=== PATIENT | female | born 1970 | race Caucasian/White ===

== ENCOUNTER 2020-01-22 12:18 | Emergency (ER) | payer OTHER ==
[2020-01-22 12:28] VITALS: BP 179/107; PULSE 88
[2020-01-22] MEDS ORDERED: Sodium Chloride 0.9% 10 ML Syringe FLUSH PRN (13:10)
[2020-01-22] MEDS ORDERED: Ondansetron 4 MG/2 ML SDV IVPUSH ONE (13:10)
[2020-01-22] MEDS ORDERED: Sodium Chloride 0.9% 1,000 ML IV SCH (13:15)
--- NOTE | 2020-01-22 14:45 | EDM.PDOC ---
ED HPI GENERAL MEDICAL PROBLEM - General Chief Complaint: General Stated Complaint: OVERDOSED ON ZINC Time Seen by Provider: 01/22/20 12:36 Source of Information: Reports: Patient, RN Notes Reviewed - History of Present Illness INITIAL COMMENTS - FREE TEXT/NARRATIVE: 49 year old female bought some zinc supplement, took 2 tabs or pills last night and than took 3 more this AM, above recomended dose of "1 or 2" a day. After taking the pills this AM she began to feel ill, vomited and also had diarrhea. No chest or abd pain on arrival to ED, still feels mildly dizzy and nauseated. - Related Data Allergies Allergy/AdvReac Type Severity Reaction Status Date / Time No Known Allergies Allergy Verified 01/22/20 12:28 Home Meds: Home Meds Ibuprofen [Advil] 800 mg PO DAILY 05/26/19 [History] Omeprazole 20 mg PO DAILY #14 tablet. 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: Musculoskeletal History: Reports: None Neurological History: Reports: Headaches, Chronic Psychiatric History: Reports: None Endocrine/Metabolic History: Reports: None Hematologic History: Reports: None Immunologic History: Reports: None Oncologic (Cancer) History: Reports: None Dermatologic History: Reports: None - Infectious Disease History Infectious Disease History: Reports: Chicken Pox, Measles, Mumps Social & Family History - Family History Family Medical History: Noncontributory - Tobacco Use Smoking Status *Q: Never Smoker - Caffeine Use Caffeine Use: Reports: None - Recreational Drug Use Recreational Drug Use: No - Living Situation & Occupation Living situation: Reports: with Family, Occupation: Employed ED ROS GENERAL - Review of Systems Review Of Systems: See Below Constitutional: Denies: Fever, Chills, Diaphoresis HEENT: Reports: No Symptoms Respiratory: Denies: Shortness of Breath, Cough Cardiovascular: Denies: Chest Pain GI/Abdominal: Reports: Diarrhea, Nausea, Vomiting. Denies: Abdominal Pain Musculoskeletal: Reports: No Symptoms Skin: Reports: No Symptoms Neurological: Reports: Dizziness ED EXAM, GENERAL - Physical Exam Exam: See Below General Appearance: Alert, No Apparent Distress Eye Exam: Bilateral Eye: PERRL Head: Atraumatic. No: Facial Swelling Neck: Supple Respiratory/Chest: No Respiratory Distress, Lungs Clear, Normal Breath Sounds. No: Rhonchi, Wheezing Cardiovascular: Regular Rate, Rhythm GI/Abdominal: Soft, Non-Tender Extremities: Normal Inspection, Normal Range of Motion Neurological: Alert, Oriented, No Motor/Sensory Deficits Skin Exam: Warm, Dry, Normal Color Course - Vital Signs Last Recorded V/S: Last Vital Signs Temp 97.2 F 01/22/20 12:24 Pulse 88 01/22/20 12:24 Resp 16 01/22/20 12:24 BP 179/107 H 01/22/20 12:24 Pulse Ox 100 01/22/20 12:24 - Orders/Labs/Meds Orders: Active Orders 24 hr Category Date Time Status Peripheral IV Care [RC] . DIRECTED Care 01/22/20 13:11 Active Peripheral IV Insertion Adult [OM.PC] Stat Oth 01/22/20 13:10 Ordered Labs: Laboratory Tests 01/22/20 01/22/20 Range/Units 13:50 13:50 WBC 8.17 (3.98-10.04) K/mm3 RBC 4.07 (3.98-5.22) M/mm3 Hgb 12.4 (11.2-15.7) gm/dl Hct 37.1 (34.1-44.9) % MCV 91.2 (79.4-94.8) fl MCH 30.5 (25.6-32.2) pg MCHC 33.4 (32.2-35.5) g/dl RDW Std Deviation 44.7 (36.4-46.3) fL Plt Count 142 L (182-369) K/mm3 MPV 12.7 H (9.4-12.3) fl Neut % (Auto) 81.9 H (34.0-71.1) % Lymph % (Auto) 10.8 L (19.3-51.7) % [place] % (Auto) 6.1 (4.7-12.5) % Eos % (Auto) 1.0 (0.7-5.8) Baso % (Auto) 0.1 (0.1-1.2) % Neut # (Auto) 6.69 H (1.56-6.13) K/mm3 Lymph # (Auto) 0.88 L (1.18-3.74) K/mm3 [place] # (Auto) 0.50 H (0.24-0.36) K/mm3 Eos # (Auto) 0.08 (0.04-0.36) K/mm3 Baso # (Auto) 0.01 (0.01-0.08) K/mm3 Sodium 142 (136-145) mEq/L Potassium 4.4 (3.5-5.1) mEq/L Chloride 108 H (98-107) mEq/L Carbon Dioxide 25 (21-32) mEq/L Anion Gap 13.4 (5-15) BUN 11 (7-18) mg/dL Creatinine 0.7 (0.55-1.02) mg/dL Est Cr Clr Drug Dosing 81.30 mL/min Estimated GFR (MDRD) > 60 (>60) mL/min BUN/Creatinine Ratio 15.7 (14-18) Glucose 105 (74-106) mg/dL Calcium 8.5 (8.5-10.1) mg/dL Total Bilirubin 0.5 (0.2-1.0) mg/dL AST 21 (15-37) U/L ALT 24 (14-59) U/L Alkaline Phosphatase 115 (46-116) U/L Total Protein 7.0 (6.4-8.2) g/dl Albumin 3.7 (3.4-5.0) g/dl Globulin 3.3 gm/dL Albumin/Globulin Ratio 1.1 (1-2) Meds: Medications Discontinued Medications Generic Name Dose Route Start Last Admin Trade Name Freq PRN Reason Stop Dose Admin Sodium Chloride 1,000 mls @ 999 mls/hr 01/22/20 13:15 01/22/20 13:26 Normal Saline IV 999 mls/hr ONETIME KEE Administration Ondansetron HCl 4 mg 01/22/20 13:10 01/22/20 13:26 Zofran IVPUSH 01/22/20 13:11 4 mg ONETIME ONE Administration Sodium Chloride 10 ml 01/22/20 13:10 01/22/20 13:26 Saline Flush FLUSH 10 ml ASDIRECTED PRN Administration Keep Vein Open - Re-Assessments/Exams Free Text/Narrative Re-Assessment/Exam: 01/22/20 16:05 We did check with poison control, they are not concerned for any potential toxicity, she was feeling much better at time of discharge, labs nl. Departure - Departure Time of Disposition: 14:43 Disposition: Home, Self-Care 01 Condition: Fair Clinical Impression: Zinc poisoning - Discharge Information Referrals: Nida Baron MD [Primary Care Provider] - Forms: ED Department Discharge Additional Instructions: clear liquids, bland diet as tolerated. We did check with poison control and they state you will do well with current treatment. Avoid further zinc for at least the next week. Return to ED as needed. Sepsis Event Note - Evaluation Sepsis Screening Result: No Definite Risk - Focused Exam Vital Signs: Vital Signs Temp Pulse Resp BP Pulse Ox 01/22/20 12:24 97.2 F 88 16 179/107 H 100 Date Exam was Performed: 01/22/20 Time Exam was Performed: 16:02 - My Orders Last 24 Hours: My Active Orders 01/22/20 13:10 Peripheral IV Insertion Adult [OM.PC] Stat 01/22/20 13:11 Peripheral IV Care [RC] . DIRECTED - Assessment/Plan Last 24 Hours: My Active Orders 01/22/20 13:10 Peripheral IV Insertion Adult [OM.PC] Stat 01/22/20 13:11 Peripheral IV Care [RC] . DIRECTED
== END 2020-01-22 14:50 | disposition home or self-care (01) ==
LOC: JD.ED 12:18
DX: T56.5X1A Toxic effect of zinc and its compounds, accidental (unintentional), initial encounter (principal); K21.9 Gastro-esophageal reflux disease without esophagitis; Z79.899 Other long term (current) drug therapy
CPT/HCPCS: 36415; 80053; 85025; 96361; 96374; 99284; J2405; J7030; 99283

== ENCOUNTER 2020-04-22 16:30 | Emergency (ER) | payer OTHER ==
[2020-04-22 17:01] VITALS: BP 208/115; PULSE 87
[2020-04-22] MEDS ORDERED: Orphenadrine 100 MG Tab.ER PO ONE (18:04)
[2020-04-22] MEDS ORDERED: Ketorolac 60 MG/2 ML SDV IM ONE (18:04)
--- NOTE | 2020-04-22 18:17 | EDM.PDOC ---
ED HPI GENERAL MEDICAL PROBLEM - General Chief Complaint: Back Pain or Injury Stated Complaint: BACK/STOMACH PAIN Time Seen by Provider: 04/22/20 17:31 Source of Information: Reports: Patient, RN Notes Reviewed History Limitations: Reports: No Limitations - History of Present Illness INITIAL COMMENTS - FREE TEXT/NARRATIVE: Patient is a 50-year-old female who presents to the ED for evaluation of mid back pain. Patient states that her mid back/lower rib cage area seems to start hurting today, she would rate this at about a 10 out of 10. She states she has not tried any [id number] medications for pain relief. She is also complaining of some suprapubic pain, that started yesterday. She further notes that her urine had quite a foul smell a few days ago, and was wondering if she might not have an infection as well. She denies any fever/chills, nausea/vomiting, cough/shortness of breath. She did have a couple loose stools over the weekend, but states that she did indulge quite a bit over the April weekend. She further denies any dysuria, frequency or urgency. She denies any bowel or bladder incontinence, and also denies any saddle anesthesia. She does note that she has transient issues with her blood pressure is high at times, but she is not on any medications for this. She does state that the pain is sharp/shooting in nature, and does feel also kind of crampy and spasmy. Nothing seems to really make this worse, but she states that she took a warm bath this morning and it seemed to help. She states that the pain seemed to radiate around the front of her lower rib cage as well. She denies any trauma, or any weird moving/bending/stooping movements that she would have made. Back Pain Score (Numeric/FACES): 10 Abdomen Pain Score (Numeric/FACES): 6 - Related Data Allergies Allergy/AdvReac Type Severity Reaction Status Date / Time No Known Allergies Allergy Verified 01/22/20 12:28 Home Meds: Home Meds Ibuprofen [Advil] 800 mg PO DAILY 05/26/19 [History] Omeprazole 20 mg PO DAILY #14 tablet. 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 ED EXAM, UPPER BACK/NECK PAIN - Physical Exam Exam: See Below Exam Limited By: No Limitations General Appearance: Alert, WD/WN, No Apparent Distress Neck Exam: Non-Tender, Full Range of Motion, Normal Alignment, Normal Inspection Nexus Criteria: No: Posterior, Midline Cervical Tenderness, Evidence of Intoxication, Altered Level of Consciousness, Focal Neurological Deficit, Painful Distraction Injuries Cardiovascular/Respiratory: Regular Rate, Rhythm, No M/R/G, Normal Peripheral Pulses, No JVD, Normal Breath Sounds, No Respiratory Distress GI/Abdominal: Normal Bowel Sounds, Soft, Non-Tender, No Distention, No Mass Back Exam: Normal Inspection, Muscle Spasm (On the patient's right lower rib cage margin, this does seem to be a tender spot for her with palpation.). No: CVA Tenderness (L), CVA Tenderness (R) Extremities: Normal Inspection, Normal Capillary Refill Neurologic: squilgeer II-XII nml As Tested, No Motor/Sensory Deficits, Alert, Normal Mood/Affect, Oriented x 3 Psychiatric: Normal Affect, Normal Mood Skin Exam: Normal Color, Warm/Dry Course - Vital Signs Last Recorded V/S: Last Vital Signs Temp 98.3 F 04/22/20 16:56 Pulse 87 04/22/20 16:56 Resp BP 208/115 H 04/22/20 16:56 Pulse Ox 100 04/22/20 16:56 - Orders/Labs/Meds Labs: Laboratory Tests 04/22/20 Range/Units 17:50 Urine Color Light yellow (Yellow) Urine Appearance Clear (Clear) Urine pH 6.0 (5.0-8.0) Ur Specific [place] > or = 1.030 (1.005-1.030) Urine Protein Negative (Negative) Urine Glucose (UA) Negative (Negative) Urine Ketones Negative (Negative) Urine Occult Blood Trace-intact H (Negative) Urine Nitrite Negative (Negative) Urine Bilirubin Negative (Negative) Urine Urobilinogen 0.2 (0.2-1.0) Ur Leukocyte Esterase Negative (Negative) Urine RBC 0-5 (0-5) /hpf Urine WBC Not seen (0-5) /hpf Ur Squamous Epith Cells 0-5 (0-5) /hpf Urine Bacteria Not seen (FEW) /hpf Urine Mucus Not seen (FEW) /hpf Meds: Medications Discontinued Medications Generic Name Dose Route Start Last Admin Trade Name Aditya PRN Reason Stop Dose Admin Ketorolac Tromethamine 60 mg 04/22/20 18:04 04/22/20 18:12 Toradol IM 04/22/20 18:05 60 mg ONETIME ONE Administration Orphenadrine Citrate 100 mg 04/22/20 18:04 04/22/20 18:12 Norflex PO 04/22/20 18:05 100 mg ONETIME ONE Administration - Re-Assessments/Exams Free Text/Narrative Re-Assessment/Exam: 04/22/20 18:17 Patient presents to the ED for the evaluation of her mid back/urinary symptoms. We will get urinalysis to evaluate for UTI, but I do feel that this is likely a muscle spasm in nature. She has also been given 60 mg Toradol and 100 mg Norflex for management. 04/22/20 18:50 Patient's UTI didn't demonstrate any sign of a UTI. Will treat for muscle spasms and send her home with norflex and naprosyn. 04/22/20 19:13 Patient reports she feels pretty good pain relief from the medications provided. Departure - Departure Time of Disposition: 18:54 Disposition: Home, Self-Care 01 Condition: Good Clinical Impression: Mid-back pain, acute - Discharge Information *PRESCRIPTION DRUG MONITORING PROGRAM REVIEWED*: No *COPY OF PRESCRIPTION DRUG MONITORING REPORT IN PATIENT LAZARO: No Prescriptions: Naproxen [Naprosyn] 500 mg PO Q12HR #14 tab Orphenadrine [Norflex] 100 mg PO BID PRN #20 tab PRN Reason: Spasms Instructions: Back Injury Prevention, [id number] Referrals: Nida Baron MD [Primary Care Provider] - Forms: ED Department Discharge Additional Instructions: You have been evaluated in the ER today for your back pain. Your urinalysis did not demonstrate any sign of a UTI. Your pain is most likely musculoskeletal in nature. You have been provided with a prescription for Napr osyn and Norflex, please take as directed. You may want to try to use heat packs to the area, or try to utilize area chiropractors or massage to try to get some more relief from the pain. Please return to the ER at any time if your symptoms change or worsen. Sepsis Event Note (ED) - Evaluation Sepsis Screening Result: No Definite Risk - Focused Exam Vital Signs: Vital Signs Temp Pulse BP Pulse Ox 04/22/20 16:56 98.3 F 87 208/115 H 100
== END 2020-04-22 19:25 | disposition home or self-care (01) ==
LOC: JD.ED 16:30
DX: M54.6 Pain in thoracic spine (principal); K21.9 Gastro-esophageal reflux disease without esophagitis; Z79.899 Other long term (current) drug therapy
CPT/HCPCS: 81001; 96372; 99283; A9270; J1885

== ENCOUNTER 2020-07-30 17:47 | Emergency (ER) | payer OTHER ==
[2020-07-30 18:15] VITALS: BP 162/86; PULSE 75
[2020-07-30] MEDS ORDERED: Ondansetron 4 MG/2 ML SDV IVPUSH ONE (18:27)
[2020-07-30] MEDS ORDERED: Sodium Chloride 0.9% 1,000 ML IV SCH (18:30)
[2020-07-30] MEDS ORDERED: Sodium Chloride 0.9% 10 ML Syringe FLUSH PRN (18:31)
[2020-07-30] MEDS ORDERED: HYDROmorphone 1 MG/ML Syringe IVPUSH ONE (18:32)
--- NOTE | 2020-07-30 18:44 | EDM.PDOC ---
ED HPI GENERAL MEDICAL PROBLEM - General Chief Complaint: Abdominal Pain Stated Complaint: ABDOMINAL PAIN AND BLOOD IN URINE Time Seen by Provider: 07/30/20 18:06 Source of Information: Reports: Patient, RN Notes Reviewed History Limitations: Reports: No Limitations - History of Present Illness INITIAL COMMENTS - FREE TEXT/NARRATIVE: Patient is a 50-year-old female who presents to the ED for her lower abdomen pain and vaginal bleeding. Patient notes for the last 3 days, she has noticed some vaginal bleeding. She states she is going through menopause, and had her last menstrual period 1 year ago. She has not had any vaginal bleeding since these last 3 days. She states this is fairly light, she is using 1 or 2 liners daily. She does also note a remote history of being COVID positive, and states that she is not contagious at this time. She is having some lingering dizziness and lightheadedness from this along with a dry hacking cough. Her primary care provider is Nida Baron, does seem an PACKING ATTENDANT in [place]. States that she does have an appointment to see them sometime in August. She has had uterine polyps removed in the past. She states that her abdomen pain is kind of a generalized cramping but it is there all the time nothing really seems to make it better or worse. She has not had any other abdominal surgeries. She is not having any fevers or chills, nausea or vomiting, but did have some diarrhea or loose stools, and states that she is not really regular in the bowel department as she states she is frequently constipated and does not have BMs. She also relates a history of a prolapsed bladder. 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 05/26/19 [Rx] Cholecalciferol (Vitamin D3) [Vitamin D] 5,000 unit PO DAILY 01/22/20 [History] Ondansetron [Zofran ODT] 4 mg PO ASDIRECTED 04/22/20 [History] Past Medical History HEENT History: Reports: None Cardiovascular History: Reports: Other (See Below) Other Cardiovascular History: LBBB Respiratory History: Reports: None Gastrointestinal History: Reports: GERD, Hiatal Hernia Genitourinary History: Reports: None PACKING ATTENDANT History: Reports: Musculoskeletal History: Reports: None Neurological History: Reports: Headaches, Chronic Psychiatric History: Reports: None Endocrine/Metabolic History: Reports: None Hematologic History: Reports: None Immunologic History: Reports: None Oncologic (Cancer) History: Reports: None Dermatologic History: Reports: None - Infectious Disease History Infectious Disease History: Reports: Other (See Below) Other Infectious Disease History: covid + Social & Family History - Family History Family Medical History: Noncontributory - Tobacco Use Tobacco Use Status *Q: Never Tobacco User - Caffeine Use Caffeine Use: Reports: Soda - Recreational Drug Use Recreational Drug Use: No - Living Situation & Occupation Living situation: Reports: with Family, Occupation: Employed ED ROS GENERAL - Review of Systems Review Of Systems: Comprehensive ROS is negative, except as noted in HPI. ED EXAM, GI/ABD - Physical Exam Exam: See Below Exam Limited By: No Limitations General Appearance: Alert, WD/WN, No Apparent Distress Respiratory/Chest: No Respiratory Distress, Lungs Clear, Normal Breath Sounds, No Accessory Muscle Use, Chest Non-Tender Cardiovascular: Normal Peripheral Pulses, Regular Rate, Rhythm, No Murmur GI/Abdominal Exam: Normal Bowel Sounds, Soft, No Distention, No Mass, Tender (generalized) (Female) Exam: Normal External Exam, Normal Bimanual Exam, Other (pt does have prolapsed bladder, there was 1-2 flecks of bright read blood on glove after bimanual exam. She did have some midline uterine tenderness) Extremities: Normal Inspection, Normal Capillary Refill Neurological: Alert, Oriented, Normal Cognition, No Motor/Sensory Deficits Psychiatric: Normal Affect, Normal Mood Skin Exam: Warm, Dry, Intact, Normal Color, No Rash Course - Vital Signs Last Recorded V/S: Last Vital Signs Temp 97.9 F 07/30/20 18:13 Pulse 75 07/30/20 18:13 Resp 20 07/30/20 18:13 BP 162/86 H 07/30/20 18:13 Pulse Ox 99 07/30/20 18:13 - Orders/Labs/Meds Orders: Active Orders 24 hr Category Date Time Status Peripheral IV Care [RC] . DIRECTED Care 07/30/20 18:31 Ordered Abdomen Pelvis w Cont [CT] Stat Exams 07/30/20 18:27 Ordered Sodium Chloride 0.9% [Normal Saline] 1,000 ml Med 07/30/20 18:30 Ordered IV ASDIRECTED Sodium Chloride 0.9% [Saline Flush] Med 07/30/20 18:31 Ordered 10 ml FLUSH ASDIRECTED PRN Peripheral IV Insertion Adult [OM.PC] Routine Oth 07/30/20 18:31 Ordered Medication Orders Sodium Chloride (Normal Saline) 1,000 mls @ 999 mls/hr IV ASDIRECTED KEE Last Admin: 07/30/20 18:49 Dose: 999 mls/hr Documented by: ELIE Sodium Chloride (Saline Flush) 10 ml FLUSH ASDIRECTED PRN PRN Reason: Keep Vein Open Last Admin: 07/30/20 18:49 Dose: 10 ml Documented by: ELIE Labs: Laboratory Tests 07/30/20 07/30/20 07/30/20 Range/Units 18:33 18:40 18:40 WBC 4.76 (3.98-10.04) K/mm3 RBC 4.00 (3.98-5.22) M/mm3 Hgb 12.4 (11.2-15.7) gm/dl Hct 36.2 (34.1-44.9) % MCV 90.5 (79.4-94.8) fl MCH 31.0 (25.6-32.2) pg MCHC 34.3 (32.2-35.5) g/dl RDW Std Deviation 41.7 (36.4-46.3) fL Plt Count 174 L (182-369) K/mm3 MPV 12.0 (9.4-12.3) fl Neutrophils % (Manual) 43 (40-60) % Band Neutrophils % 2 (0-10) % Lymphocytes % (Manual) 47 H (20-40) % Atypical Lymphs % 0 % Monocytes % (Manual) 3 (2-10) % Eosinophils % (Manual) 5 (0.7-5.8) % Basophils % (Manual) 0 L (0.1-1.2) Platelet Estimate Adequate RBC Morph Comment Normal Sodium 141 (136-145) mEq/L Potassium 3.8 (3.5-5.1) mEq/L Chloride 103 (98-107) mEq/L Carbon Dioxide 28 (21-32) mEq/L Anion Gap 13.8 (5-15) BUN 13 (7-18) mg/dL Creatinine 1.0 (0.55-1.02) mg/dL Est Cr Clr Drug Dosing 56.29 mL/min Estimated GFR (MDRD) 59 (>60) mL/min BUN/Creatinine Ratio 13.0 L (14-18) Glucose 91 (74-106) mg/dL Calcium 9.1 (8.5-10.1) mg/dL Total Bilirubin 0.5 (0.2-1.0) mg/dL AST 14 L (15-37) U/L ALT 14 (14-59) U/L Alkaline Phosphatase 115 (46-116) U/L Total Protein 7.3 (6.4-8.2) g/dl Albumin 3.6 (3.4-5.0) g/dl Globulin 3.7 gm/dL Albumin/Globulin Ratio 1.0 (1-2) Urine Color Yellow (Yellow) Urine Appearance Clear (Clear) Urine pH 6.5 (5.0-8.0) Ur Specific [place] 1.015 (1.005-1.030) Urine Protein Negative (Negative) Urine Glucose (UA) Negative (Negative) Urine Ketones Negative (Negative) Urine Occult Blood Negative (Negative) Urine Nitrite Negative (Negative) Urine Bilirubin Negative (Negative) Urine Urobilinogen 0.2 (0.2-1.0) Ur Leukocyte Esterase Negative (Negative) Urine RBC Not seen (0-5) /hpf Urine WBC Not seen (0-5) /hpf Ur Squamous Epith Cells Not seen (0-5) /hpf Urine Bacteria Occasional (FEW) /hpf Urine Mucus Not seen (FEW) /hpf Meds: Medications Generic Name Dose Route Start Last Admin Trade Name Freq PRN Reason Stop Dose Admin Sodium Chloride 1,000 mls @ 999 mls/hr 07/30/20 18:30 07/30/20 18:49 Normal Saline IV 999 mls/hr ASDIRECTED KEE Administration Sodium Chloride 10 ml 07/30/20 18:31 07/30/20 18:49 Saline Flush FLUSH 10 ml ASDIRECTED PRN Administration Keep Vein Open Discontinued Medications Generic Name Dose Route Start Last Admin Trade Name Freq PRN Reason Stop Dose Admin Diatrizoate Meglum/Diatrizoate Sod 120 ml 07/30/20 20:28 07/30/20 20:29 Gastrografin 37% PO 07/30/20 20:29 120 ml ONETIME ONE Administration Hydromorphone HCl 1 mg 07/30/20 18:32 Dilaudid IVPUSH 07/30/20 18:33 ONETIME ONE Iopamidol 100 ml 07/30/20 20:28 07/30/20 20:29 Isovue-300 (61%) IVPUSH 07/30/20 20:29 100 ml ONETIME ONE Administration Ondansetron HCl 4 mg 07/30/20 18:27 07/30/20 18:49 Zofran IVPUSH 07/30/20 18:28 4 mg ONETIME ONE Administration Sodium Chloride 10 ml 07/30/20 20:28 07/30/20 20:29 Saline Flush FLUSH 07/30/20 20:29 10 ml ONETIME ONE Administration - Re-Assessments/Exams Free Text/Narrative Re-Assessment/Exam: 07/30/20 18:44 Patient presents to the ED for evaluation of her abdominal discomfort and a suspected vaginal bleeding. Unsure as to where the vaginal bleeding is coming from. Will get basic labs, abdomen CT and a UA for evaluation. 07/30/20 19:21 Urinalysis is unremarkable, other labs are unremarkable, white blood cell count is within normal limits, metabolic panel shows no focal abnormalities. CT is still pending at this time. 07/30/20 21:[address] is done, and demonstrates no acute abnormalities, does show the remnant of COVID pneumonia. She does have cholelithiasis, and was found to have 2 stones in her gallbladder with no gallbladder wall thickening. There is no pericholecystic fluid, no biliary ductal dilatation. All other structures were unremarkable. I did go over this case with our PACKING ATTENDANT on-call, Dr. Parker and she does recommend that the patient follow-up with her PACKING ATTENDANT on Sunday, and , and she believes that this could be irritation due to the prolapsed bladder urged them to move her appointment to a sooner date for ER follow-up for possible ultrasound and or biopsies. Patient verbalized understanding at this time, I did give her return precautions and she verbalized understanding again. Departure - Departure Time of Disposition: 21:03 Disposition: Home, Self-Care 01 Condition: Good Clinical Impression: Vaginal bleeding, Perimenopausal, Prolapsed bladder Abdominal pain Qualifiers: Abdominal location: lower abdomen, unspecified Qualified Code(s): R10.30 - Lower abdominal pain, unspecified - Discharge Information *PRESCRIPTION DRUG MONITORING PROGRAM REVIEWED*: No *COPY OF PRESCRIPTION DRUG MONITORING REPORT IN PATIENT LAZARO: No Referrals: Nida Baron, LINK TRAINER MAINTENANCE MAN [Primary Care Provider] - Forms: ED Department Discharge Additional Instructions: You were evaluated in the ER today for your lower abdomen pain, and vaginal bleeding. Labs, and CT were all fairly unremarkable. You do not have any sort of infection causing this issue. Your CT did demonstrate 2 stones within your gallbladder, but no major defects otherwise within any other structure in your abdomen. You do have lingering changes in your lungs, due to your semi-recent COVID infection. I did consult with our OB/GYNon call, Dr. Faria regarding your vaginal bleeding, and we do believe that this could be from irritation due to the prolapsed bladder. A little bit of bleeding is okay, if you are only soaking through a liner. Cause for concern to return to the ER would be if you were to be soaking through a maxi pad every 2 hours or so. As this would be too much blood loss. Please get a hold of your PACKING ATTENDANT on Sunday, and see if you can get your appointment moved to a sooner date for ER follow-up for possible ultrasound and or biopsies if this is deemed warranted. Please return to the ER at any time if your symptoms change or worsen. Sepsis Event Note (ED) - Evaluation Sepsis Screening Result: No Definite Risk - Focused Exam Vital Signs: Vital Signs Temp Pulse Resp BP Pulse Ox 07/30/20 18:13 97.9 F 75 20 162/86 H 99 - My Orders Last 24 Hours: My Active Orders 07/30/20 18:27 Abdomen Pelvis w Cont [CT] Stat 07/30/20 18:30 Sodium Chloride 0.9% [Normal Saline] 1,000 ml IV ASDIRECTED 07/30/20 18:31 Peripheral IV Care [RC] . DIRECTED Sodium Chloride 0.9% [Saline Flush] 10 ml FLUSH ASDIRECTED PRN Peripheral IV Insertion Adult [OM.PC] Routine - Assessment/Plan Last 24 Hours: My Active Orders 07/30/20 18:27 Abdomen Pelvis w Cont [CT] Stat 07/30/20 18:30 Sodium Chloride 0.9% [Normal Saline] 1,000 ml IV ASDIRECTED 07/30/20 18:31 Peripheral IV Care [RC] . DIRECTED Sodium Chloride 0.9% [Saline Flush] 10 ml FLUSH ASDIRECTED PRN Peripheral IV Insertion Adult [OM.PC] Routine
[2020-07-30] MEDS ORDERED: Sodium Chloride 0.9% 10 ML Syringe FLUSH ONE (20:28)
[2020-07-30] MEDS ORDERED: Iopamidol 612 MG/ML 100 ML Bottle IVPUSH ONE (20:28)
[2020-07-30] MEDS ORDERED: Diatrizoate Meglumine/Diatrizoate Sodium 37% 120 ML Bottle PO ONE (20:28)
== END 2020-07-30 21:25 | disposition home or self-care (01) ==
LOC: JD.ED 17:47
DX: N93.9 Abnormal uterine and vaginal bleeding, unspecified (principal); N81.10 Cystocele, unspecified; Z78.0 Asymptomatic menopausal state; Z86.19 Personal history of other infectious and parasitic diseases
CPT/HCPCS: 36415; 74177; 80053; 81001; 85007; 85027; 96374; 99284; J2405; J7030; Q9963; Q9967

== ENCOUNTER 2020-09-27 17:31 | Emergency (ER) | payer SELFPAY ==
[2020-09-27] MEDS ORDERED: Alum Hydrox/Mag Hydrox/Simeth 30 ML, Lidocaine 2% 15 ML PO ONE ×2 (18:07)
--- NOTE | 2020-09-27 18:12 | EDM.PDOC ---
ED HPI GENERAL MEDICAL PROBLEM - General Chief Complaint: Chest Pain Stated Complaint: SOB AND CHEST PRESSURE WITH NEW MEDS Time Seen by Provider: 09/27/20 17:41 Source of Information: Reports: Patient, RN Notes Reviewed - History of Present Illness INITIAL COMMENTS - FREE TEXT/NARRATIVE: 50 yr old female has has mild ant. chest pressure today. It does not radiate to her neck, shoulder or arm. Hx of GERD but "this feels different". No recent cough or difficulty breathing. Hx of covid about 2 months ago. She still feels fatigue from that but otherwise believes she is fully recovered. Started on propanalol 80 mg LA once daily about 5 days ago for Htn. No abd pain, nausea or vomiting. Chest Pain Score (Numeric/FACES): 5 - Related Data Allergies Allergy/AdvReac Type Severity Reaction Status Date / Time No Known Allergies Allergy Verified 09/27/20 17:42 Home Meds: Home Meds Ibuprofen [Advil] 800 mg PO DAILY 05/26/19 [History] Omeprazole 20 mg PO DAILY #14 tablet. 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: Musculoskeletal History: Reports: None Neurological History: Reports: Headaches, Chronic Psychiatric History: Reports: None Endocrine/Metabolic History: Reports: None Hematologic History: Reports: None Immunologic History: Reports: None Oncologic (Cancer) History: Reports: None Dermatologic History: Reports: None - Infectious Disease History Infectious Disease History: Reports: Novel Coronavirus Other Infectious Disease History: covid + Social & Family History - Family History Family Medical History: No Pertinent Family History - Tobacco Use Tobacco Use Status *Q: Never Tobacco User - Caffeine Use Caffeine Use: Reports: Soda - Living Situation & Occupation Living situation: Reports: with Family, Occupation: Employed ED ROS GENERAL - Review of Systems Review Of Systems: See Below Constitutional: Denies: Fever, Chills, Diaphoresis HEENT: Reports: No Symptoms Respiratory: Denies: Shortness of Breath, Wheezing, Pleuritic Chest Pain, Cough Cardiovascular: Reports: Chest Pain Endocrine: Reports: Fatigue GI/Abdominal: Denies: Abdominal Pain, Nausea, Vomiting Musculoskeletal: Denies: Neck Pain, Shoulder Pain, Arm Pain Skin: Reports: No Symptoms Neurological: Reports: No Symptoms ED EXAM, GENERAL - Physical Exam Exam: See Below General Appearance: Alert, No Apparent Distress Eye Exam: Bilateral Eye: PERRL Head: Atraumatic Neck: Supple, Other (No JVD) Cardiovascular: Regular Rate, Rhythm GI/Abdominal: Soft, Non-Tender. No: Guarding Back Exam: No: CVA Tenderness (L), CVA Tenderness (R) Extremities: Normal Inspection. No: Pedal Edema, Leg Pain, Increased Warmth Neurological: Alert, Oriented, No Motor/Sensory Deficits Skin Exam: Warm, Normal Color #1 Interpretation EKG Date: 09/27/20 Rhythm: NSR [place]: Normal P-Wave: Present QRS: LBBB Course - Vital Signs Last Recorded V/S: Last Vital Signs Temp 97.2 F 09/27/20 17:38 Pulse 59 L 09/27/20 18:30 Resp 16 09/27/20 18:30 BP 166/98 H 09/27/20 18:30 Pulse Ox 98 09/27/20 18:30 - Orders/Labs/Meds Orders: Active Orders 24 hr Category Date Time Status EKG 12 Lead [EKG Documentation Completion] [RC] ONETIME Care 09/27/20 17:38 Active Chest 1V Frontal [CR] Stat Exams 09/27/20 17:47 Taken Sodium Chloride 0.9% [Normal Saline] 1,000 ml Med 09/27/20 18:15 Active IV ONETIME Medication Orders Sodium Chloride (Normal Saline) 1,000 mls @ 999 mls/hr IV ONETIME KEE Last Admin: 09/27/20 18:10 Dose: 999 mls/hr Documented by: REGULO Labs: Laboratory Tests 09/27/20 09/27/20 Range/Units 17:43 17:43 WBC 7.07 (3.98-10.04) K/mm3 RBC 4.13 (3.98-5.22) M/mm3 Hgb 12.9 (11.2-15.7) gm/dl Hct 37.5 (34.1-44.9) % MCV 90.8 (79.4-94.8) fl MCH 31.2 (25.6-32.2) pg MCHC 34.4 (32.2-35.5) g/dl RDW Std Deviation 41.8 (36.4-46.3) fL Plt Count 190 (182-369) K/mm3 MPV 12.5 H (9.4-12.3) fl Neut % (Auto) 52.5 (34.0-71.1) % Lymph % (Auto) 37.5 (19.3-51.7) % [place] % (Auto) 7.1 (4.7-12.5) % Eos % (Auto) 2.5 (0.7-5.8) Baso % (Auto) 0.3 (0.1-1.2) % Neut # (Auto) 3.71 (1.56-6.13) K/mm3 Lymph # (Auto) 2.65 (1.18-3.74) K/mm3 [place] # (Auto) 0.50 H (0.24-0.36) K/mm3 Eos # (Auto) 0.18 (0.04-0.36) K/mm3 Baso # (Auto) 0.02 (0.01-0.08) K/mm3 Sodium 138 (136-145) mEq/L Potassium 3.4 L (3.5-5.1) mEq/L Chloride 104 (98-107) mEq/L Carbon Dioxide 27 (21-32) mEq/L Anion Gap 10.4 (5-15) BUN 15 (7-18) mg/dL Creatinine 0.9 (0.55-1.02) mg/dL Est Cr Clr Drug Dosing TNP Estimated GFR (MDRD) > 60 (>60) mL/min BUN/Creatinine Ratio 16.7 (14-18) Glucose 101 (74-106) mg/dL Calcium 9.4 (8.5-10.1) mg/dL Total Bilirubin 0.4 (0.2-1.0) mg/dL AST 15 (15-37) U/L ALT 18 (14-59) U/L Alkaline Phosphatase 90 (46-116) U/L Troponin I < 0.017 (0.00-0.056) ng/mL Total Protein 7.7 (6.4-8.2) g/dl Albumin 4.0 (3.4-5.0) g/dl Globulin 3.7 gm/dL Albumin/Globulin Ratio 1.1 (1-2) Meds: Medications Generic Name Dose Route Start Last Admin Trade Name Freq PRN Reason Stop Dose Admin Sodium Chloride 1,000 mls @ 999 mls/hr 09/27/20 18:15 09/27/20 18:10 Normal Saline IV 999 mls/hr ONETIME KEE Administration Discontinued Medications Generic Name Dose Route Start Last Admin Trade Name Freq PRN Reason Stop Dose Admin Al Hydroxide/Mg Hydroxide 30 0 ml 09/27/20 18:07 09/27/20 18:12 ml/ Lidocaine HCl 15 ml PO 09/27/20 18:08 45 ml ONETIME ONE Administration - Re-Assessments/Exams Free Text/Narrative Re-Assessment/Exam: 09/27/20 18:36 EKG shows a LBB, old. Trop nl, labs otherwise nl, CXR nl. 09/27/20 18:37> Pt resting comfortably at time of discharge, sinus rythm, no ectopy. Sats 98 %. BP's have been mildly high but trending down. Discharge instr. as documented. Departure - Departure Time of Disposition: 18:34 Disposition: Home, Self-Care 01 Condition: Fair Clinical Impression: Atypical chest pain Hypertension Qualifiers: Hypertension type: essential hypertension Qualified Code(s): I10 - Essential (primary) hypertension Referrals: Raine Beyer MD [Primary Care Provider] - Forms: ED Department Discharge Additional Instructions: Continue current medications. Continue to check your BP once or twice daily and keep a record for Dr Beyer. Plan to see Dr Beyer in follow up in about 5 to 10 days or otherwise as directed. Return to ED as needed if symptoms worsening in any way. Sepsis Event Note (ED) - Evaluation Sepsis Screening Result: No Definite Risk - Focused Exam Vital Signs: Vital Signs Temp Pulse Resp BP Pulse Ox 09/27/20 18:30 59 L 16 166/98 H 98 09/27/20 18:00 58 L 16 165/92 H 98 09/27/20 17:38 97.2 F 59 L 16 177/94 H 99 - My Orders Last 24 Hours: My Active Orders 09/27/20 17:38 EKG 12 Lead [EKG Documentation Completion] [RC] ONETIME 09/27/20 17:47 Chest 1V Frontal [CR] Stat 09/27/20 18:15 Sodium Chloride 0.9% [Normal Saline] 1,000 ml IV ONETIME - Assessment/Plan Last 24 Hours: My Active Orders 09/27/20 17:38 EKG 12 Lead [EKG Documentation Completion] [RC] ONETIME 09/27/20 17:47 Chest 1V Frontal [CR] Stat 09/27/20 18:15 Sodium Chloride 0.9% [Normal Saline] 1,000 ml IV ONETIME
[2020-09-27] MEDS ORDERED: Sodium Chloride 0.9% 1,000 ML IV SCH (18:15)
[2020-09-27 18:32] VITALS: BP 166/98; PULSE 59
--- NOTE | 2020-09-28 09:17 | CR ---
Chest: Frontal view of the chest was obtained. Comparison: Prior chest x-ray of 05/26/19. Findings: Heart size and mediastinum are normal. Lungs are clear with no acute parenchymal change. Bony structures are grossly intact. Impression: 1. Nothing acute is appreciated on portable chest x-ray. Diagnostic code #1
== END 2020-09-27 18:44 | disposition home or self-care (01) ==
LOC: JD.ED 17:31
DX: R07.89 Other chest pain (principal); I10 Essential (primary) hypertension; K21.9 Gastro-esophageal reflux disease without esophagitis; Z86.19 Personal history of other infectious and parasitic diseases; Z79.899 Other long term (current) drug therapy
CPT/HCPCS: 36415; 71045; 80053; 84484; 85025; 93005; 99285; A9270; J7030

== ENCOUNTER 2020-12-13 00:36 | Emergency (ER) | payer OTHER ==
[2020-12-13 00:47] VITALS: BP 187/105; PULSE 72
[2020-12-13] MEDS ORDERED: Sodium Chloride 0.9% 10 ML Syringe FLUSH PRN (00:51)
[2020-12-13] MEDS ORDERED: Ondansetron 4 MG/2 ML SDV IVPUSH ONE (00:51)
[2020-12-13] MEDS ORDERED: Ketorolac 30 MG/ML SDV IVPUSH ONE (00:52)
--- NOTE | 2020-12-13 00:56 | EDM.PDOC ---
ED HPI GENERAL MEDICAL PROBLEM - General Chief Complaint: Flank Pain Stated Complaint: RT SIDE FLANK PAIN Time Seen by Provider: 12/13/20 00:47 Source of Information: Reports: Patient History Limitations: Reports: No Limitations - History of Present Illness INITIAL COMMENTS - FREE TEXT/NARRATIVE: The patient presents with right flank pain. This started about an hour ago. The pin radiates into her abdomen. She has nausea but no vomiting. She does have a history of gallstones but the pain is a little different. She does not think she has any history of kidney stones. She has no fever, chills, cough, chest pain, or shortness of breath. She has no dysuria or hematuria. Onset: Sudden Duration: Hour(s): Location: Reports: Abdomen, Back Quality: Reports: Sharp Severity: Moderate Improves with: Reports: None Worsens with: Reports: None Associated Symptoms: Reports: Nausea/Vomiting. Denies: Chest Pain, Cough, Fever/Chills, Headaches, Shortness of Breath Right Flank Pain Score (Numeric/FACES): 9 - Related Data Allergies Allergy/AdvReac Type Severity Reaction Status Date / Time No Known Allergies Allergy Verified 09/27/20 17:42 Home Meds: Home Meds Esomeprazole Magnesium [Nexium] 40 mg PO DAILY 12/13/20 [History] Losartan/Hydrochlorothiazide [Losartan-HCTZ 50-12.5 MG] 1 tab PO DAILY 12/13/20 [History] Past Medical History HEENT History: Reports: None Cardiovascular History: Reports: Hypertension, Other (See Below) Other Cardiovascular History: LBBB Respiratory History: Reports: None Gastrointestinal History: Reports: Cholelithiasis, GERD, Hiatal Hernia Genitourinary History: Reports: None 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: Musculoskeletal History: Reports: None Neurological History: Reports: Headaches, Chronic, Migraines Psychiatric History: Reports: None Endocrine/Metabolic History: Reports: None Hematologic History: Reports: None Immunologic History: Reports: None Oncologic (Cancer) History: Reports: None Dermatologic History: Reports: None - Infectious Disease History Infectious Disease History: Reports: Novel Coronavirus Other Infectious Disease History: covid + 07/2020 Social & Family History - Family History Family Medical History: No Pertinent Family History - Tobacco Use Tobacco Use Status *Q: Never Tobacco User - Caffeine Use Caffeine Use: Reports: Soda - Recreational Drug Use Recreational Drug Use: No - Living Situation & Occupation Living situation: Reports: with Family, Occupation: Employed ED ROS GENERAL - Review of Systems Review Of Systems: See Below Constitutional: Reports: No Symptoms HEENT: Reports: No Symptoms Respiratory: Reports: No Symptoms Cardiovascular: Reports: No Symptoms Endocrine: Reports: No Symptoms GI/Abdominal: Reports: Abdominal Pain, Nausea. Denies: Diarrhea, Vomiting : Reports: Flank Pain (right) Musculoskeletal: Reports: No Symptoms Skin: Reports: No Symptoms ED EXAM, RENAL/ - Physical Exam Exam: See Below Exam Limited By: No Limitations General Appearance: Alert, No Apparent Distress Ears: Normal External Exam Nose: Normal Inspection Head: Atraumatic, Normocephalic Neck: Normal Inspection Respiratory/Chest: No Respiratory Distress, Lungs Clear, Normal Breath Sounds Cardiovascular: Regular Rate, Rhythm, No Edema, No Murmur GI/Abdominal: Soft, No Organomegaly, No Mass, Tender (Mild tenderness to the right abdomen) Back Exam: CVA Tenderness (R) Extremities: Normal Inspection Course - Vital Signs Last Recorded V/S: Last Vital Signs Temp 97.0 F 12/13/20 00:45 Pulse 72 12/13/20 00:45 Resp 15 12/13/20 00:45 BP 187/105 H 12/13/20 00:45 Pulse Ox 100 12/13/20 00:45 - Orders/Labs/Meds Orders: Active Orders 24 hr Category Date Time Status Peripheral IV Care [RC] . DIRECTED Care 12/13/20 00:51 Active Abdomen Pelvis wo Cont [CT] Stat Exams 12/13/20 00:51 Ordered Sodium Chloride 0.9% [Normal Saline] 1,000 ml Med 12/13/20 01:00 Active IV ASDIRECTED Sodium Chloride 0.9% [Saline Flush] Med 12/13/20 00:51 Active 10 ml FLUSH ASDIRECTED PRN ED Antiemetic Medication Reflex [OM.PC] Stat Oth 12/13/20 00:51 Ordered Peripheral IV Insertion Adult [OM.PC] Stat Oth 12/13/20 00:51 Ordered Medication Orders Sodium Chloride (Normal Saline) 1,000 mls @ 125 mls/hr IV ASDIRECTED KEE Last Admin: 12/13/20 01:04 Dose: 125 mls/hr Documented by: VISHNU Sodium Chloride (Saline Flush) 10 ml FLUSH ASDIRECTED PRN PRN Reason: Keep Vein Open Last Admin: 12/13/20 01:08 Dose: 10 ml Documented by: VISHNU Labs: Laboratory Tests 12/13/20 12/13/20 12/13/20 Range/Units 01:01 01:01 01:28 WBC 8.90 (3.98-10.04) K/mm3 RBC 4.26 (3.98-5.22) M/mm3 Hgb 13.2 (11.2-15.7) gm/dl Hct 38.5 (34.1-44.9) % MCV 90.4 (79.4-94.8) fl MCH 31.0 (25.6-32.2) pg MCHC 34.3 (32.2-35.5) g/dl RDW Std Deviation 43.9 (36.4-46.3) fL Plt Count 177 L (182-369) K/mm3 MPV 11.8 (9.4-12.3) fl Neut % (Auto) 57.9 (34.0-71.1) % Lymph % (Auto) 31.7 (19.3-51.7) % Jack % (Auto) 7.8 (4.7-12.5) % Eos % (Auto) 2.2 (0.7-5.8) Baso % (Auto) 0.2 (0.1-1.2) % Neut # (Auto) 5.15 (1.56-6.13) K/mm3 Lymph # (Auto) 2.82 (1.18-3.74) K/mm3 Jack # (Auto) 0.69 H (0.24-0.36) K/mm3 Eos # (Auto) 0.20 (0.04-0.36) K/mm3 Baso # (Auto) 0.02 (0.01-0.08) K/mm3 Sodium 142 (136-145) mEq/L Potassium 4.0 (3.5-5.1) mEq/L Chloride 102 (98-107) mEq/L Carbon Dioxide 28 (21-32) mEq/L Anion Gap 16.0 H (5-15) BUN 14 (7-18) mg/dL Creatinine 1.1 H (0.55-1.02) mg/dL Est Cr Clr Drug Dosing 51.18 mL/min Estimated GFR (MDRD) 53 (>60) mL/min BUN/Creatinine Ratio 12.7 L (14-18) Glucose 125 H (74-106) mg/dL Calcium 9.6 (8.5-10.1) mg/dL Total Bilirubin 0.4 (0.2-1.0) mg/dL AST 28 (15-37) U/L ALT 41 (14-59) U/L Alkaline Phosphatase 104 (46-116) U/L Total Protein 7.8 (6.4-8.2) g/dl Albumin 3.9 (3.4-5.0) g/dl Globulin 3.9 gm/dL Albumin/Globulin Ratio 1.0 (1-2) Lipase 97 (73-393) U/L Urine Color Yellow (Yellow) Urine Appearance Clear (Clear) Urine pH 6.0 (5.0-8.0) Ur Specific [place] > or = 1.030 (1.005-1.030) Urine Protein Negative (Negative) Urine Glucose (UA) Negative (Negative) Urine Ketones Negative (Negative) Urine Occult Blood Negative (Negative) Urine Nitrite Negative (Negative) Urine Bilirubin Negative (Negative) Urine Urobilinogen 0.2 (0.2-1.0) Ur Leukocyte Esterase Negative (Negative) U Hyaline Cast (Auto) 0-5 (0-5) /lpf Urine RBC 0-5 (0-5) /hpf Urine WBC 0-5 (0-5) /hpf Ur Squamous Epith Cells 0-5 (0-5) /hpf Urine Bacteria Few (FEW) /hpf Urine Mucus Few (FEW) /hpf Meds: Medications Generic Name Dose Route Start Last Admin Trade Name Freq PRN Reason Stop Dose Admin Sodium Chloride 1,000 mls @ 125 mls/hr 12/13/20 01:00 12/13/20 01:04 Normal Saline IV 125 mls/hr ASDIRECTED KEE Administration Sodium Chloride 10 ml 12/13/20 00:51 12/13/20 01:08 Saline Flush FLUSH 10 ml ASDIRECTED PRN Administration Keep Vein Open Discontinued Medications Generic Name Dose Route Start Last Admin Trade Name Freq PRN Reason Stop Dose Admin Ketorolac Tromethamine 30 mg 12/13/20 00:52 12/13/20 01:06 Toradol IVPUSH 12/13/20 00:53 30 mg ONETIME ONE Administration Ondansetron HCl 4 mg 12/13/20 00:51 12/13/20 01:04 Zofran IVPUSH 12/13/20 00:52 4 mg ONETIME ONE Administration - Re-Assessments/Exams Free Text/Narrative Re-Assessment/Exam: 12/13/20 00:55 I ordered an IV NS at 125mL/hr, zofran 4mg IV, toradol 30mg IV, labs, UA and a CT of her abdomen and pelvis without contrast to look for kidney stones. 12/13/20 02:14 Her CBC looks good. Her anion gap was elevated at 16. Her creatinine was 1.1. Her UA shows no UTI. Her CT shows no evidence of kidney stones but she does have gallbladder distention with cholelithiasis. There is no sign of cholecystitis. She feels better. I will have her follow up with Dr Rankin in the clinic. Departure - Departure Time of Disposition: 02:20 Disposition: Home, Self-Care 01 Condition: Good Clinical Impression: Biliary colic Cholelithiasis Qualifiers: Cholelithiasis location: gallbladder Cholecystitis presence: without cholecystitis Biliary obstruction: without biliary obstruction Qualified Code(s) : K80.20 - Calculus of gallbladder without cholecystitis without obstruction - Discharge Information *PRESCRIPTION DRUG MONITORING PROGRAM REVIEWED*: Not Applicable *COPY OF PRESCRIPTION DRUG MONITORING REPORT IN PATIENT LAZARO: Not Applicable Referrals: Raine Beyer MD [Primary Care Provider] - Reese Rankin MD [Physician] - 3 Days Forms: ED Department Discharge Additional Instructions: Drink plenty of fluids. Avoid any fried fatty foods. Follow up with Dr Rankin this week. Take tylenol or motrin for pain. Please return if you are worse. Sepsis Event Note (ED) - Evaluation Sepsis Screening Result: No Definite Risk - Focused Exam Vital Signs: Vital Signs Temp Pulse Resp BP Pulse Ox 12/13/20 00:45 97.0 F 72 15 187/105 H 100 - My Orders Last 24 Hours: My Active Orders 12/13/20 00:51 Peripheral IV Care [RC] . DIRECTED Abdomen Pelvis wo Cont [CT] Stat Sodium Chloride 0.9% [Saline Flush] 10 ml FLUSH ASDIRECTED PRN ED Antiemetic Medication Reflex [OM.PC] Stat Peripheral IV Insertion Adult [OM.PC] Stat 12/13/20 01:00 Sodium Chloride 0.9% [Normal Saline] 1,000 ml IV ASDIRECTED - Assessment/Plan Last 24 Hours: My Active Orders 12/13/20 00:51 Peripheral IV Care [RC] . DIRECTED Abdomen Pelvis wo Cont [CT] Stat Sodium Chloride 0.9% [Saline Flush] 10 ml FLUSH ASDIRECTED PRN ED Antiemetic Medication Reflex [OM.PC] Stat Peripheral IV Insertion Adult [OM.PC] Stat 12/13/20 01:00 Sodium Chloride 0.9% [Normal Saline] 1,000 ml IV ASDIRECTED
[2020-12-13] MEDS ORDERED: Sodium Chloride 0.9% 1,000 ML IV SCH (01:00)
--- NOTE | 2020-12-13 06:50 | CT ---
CT abdomen and pelvis Technique: Multiple axial sections were obtained from above the dome of the diaphragm inferiorly through the pubic symphysis. Intravenous and oral contrast was not utilized. Study was performed as a ureteral stone protocol. Comparison: Prior abdominal x-ray on 05/26/19. Findings: Visualized lung bases shows nothing acute. Liver contains no focal abnormality. Spleen appears within normal limits. Adrenal glands show no nodule. There are approximately 3 calcified gallstones within the gallbladder. Adrenal glands show no nodule. Kidneys showed no abnormal calcifications. No ureteral dilatation or ureteral stone is appreciated. Pancreas shows no abnormality. Abdominal aorta shows no aneurysm. No retroperitoneal adenopathy or mesenteric abnormalities are seen. No pelvic mass or adenopathy is appreciated. Appendix is felt to be without abnormality. There is diffuse increased stool being seen throughout within the colon. No free fluid or inflammatory change is appreciated. Bone window settings were reviewed which show no acute osseous finding. Very small fat-containing umbilical hernia is noted. Impression: 1. No findings of renal calculi, ureteral dilatation or ureteral stone. 2. Three calcified gallstones within the gallbladder. 3. Mild increased stool throughout the colon. Diagnostic code #2 I agree with preliminary report from [facility], finalized on 12/13/20, 3:05 AM [employer]
== END 2020-12-13 02:26 | disposition home or self-care (01) ==
LOC: JD.ED 00:36
DX: K80.70 Calculus of gallbladder and bile duct without cholecystitis without obstruction (principal); E87.2 Acidosis; I10 Essential (primary) hypertension; K21.9 Gastro-esophageal reflux disease without esophagitis; Z86.16 Personal history of COVID-19; Z79.899 Other long term (current) drug therapy
CPT/HCPCS: 36415; 74176; 80053; 81001; 83690; 85025; 96374; 96375; 99284; J1885; J2405; J7030

== ENCOUNTER 2021-11-27 21:13 | Emergency (ER) | payer OTHER ==
[2021-11-27 21:31] VITALS: BP 166/91; PULSE 77
== END 2021-11-27 23:53 | disposition home or self-care (01) ==
LOC: JD.ED 21:13
DX: R07.89 Other chest pain (principal); I10 Essential (primary) hypertension; K21.9 Gastro-esophageal reflux disease without esophagitis; Z79.899 Other long term (current) drug therapy; Z86.16 Personal history of COVID-19
CPT/HCPCS: 36415; 71045; 71045-26; 80053; 84484; 85025; 85379; 85610; 93005; 99285-25

== ENCOUNTER 2023-04-16 11:49 | Emergency (ER) | payer OTHER ==
[2023-04-16] MEDS ORDERED: Proparacaine 0.5% Ophth Soln 15 ML Bottle EYEBOTH ONE (11:58)
[2023-04-16] MEDS ORDERED: Fluorescein 1 MG Ophth Strip EYELF ONE (12:05)
[2023-04-16] MEDS ORDERED: Lidocaine 1% 10 ML MDV INJECT ONE (13:09)
[2023-04-16 14:25] VITALS: BP 139/92; PULSE 64
== END 2023-04-16 13:45 | disposition home or self-care (01) ==
LOC: JD.ED 11:49
DX: H16.002 Unspecified corneal ulcer, left eye (principal); K21.9 Gastro-esophageal reflux disease without esophagitis; Z86.16 Personal history of COVID-19; Z79.899 Other long term (current) drug therapy
CPT/HCPCS: 99282; 99283; J3490

== ENCOUNTER 2023-07-07 22:42 | Emergency (ER) | payer OTHER ==
[2023-07-07 23:45] LABS: BASOPHILS PERCENT AUTO 0.5 % (0.0-1.0); EOSINOPHILS ABSOLUTE AUTO 0.1 K/mm3 (0.0-0.4); EOSINOPHILS PERCENT AUTO 2.5 % (0.0-6.0); HEMOGLOBIN 11.8 gm/dl (12.0-16.0); IMMATURE GRAN ABSOLUTE AUTO 0.01 K/mm3 (0.00-0.05); IMMATURE GRAN PERCENT AUTO 0.2 % (0.0-0.4); LYMPHOCYTES ABSOLUTE AUTO 1.7 K/mm3 (1.0-4.8); LYMPHOCYTES PERCENT AUTO 30.1 % (24.0-44.0); MEAN CORPUSCULAR HEMOGLOBIN 31.7 pg (28.0-32.0); MEAN CORPUSCULAR HGB CONC 34.7 g/dl (32.0-36.0); MEAN CORPUSCULAR VOLUME 91.4 fl (83.0-99.0); MEAN PLATELET VOLUME 11.4 fl (9.4-12.3); MONOCYTES ABSOLUTE AUTO 0.4 K/mm3 (0.0-0.8); MONOCYTES PERCENT AUTO 6.8 % (0.0-8.0); NEUTROPHILS ABSOLUTE AUTO 3.4 K/mm3 (1.8-7.7); NEUTROPHILS PERCENT AUTO 59.9 % (41.0-71.0); PLATELET COUNT,PLT 154 K/mm3 (150-400); RED BLOOD CELL COUNT 3.72 M/mm3 (4.10-5.30); WHITE BLOOD CELL COUNT,WBC 5.61 K/mm3 (3.9-11.3)
[2023-07-08 00:08] LABS: A/G RATIO 1.1 (1-2); ALBUMIN 3.7 g/dl (3.4-5.0); ANION GAP 10.7 (5-15); BILIRUBIN TOTAL 0.4 mg/dL (0.2-1.0); CALCIUM 9.1 mg/dL (8.5-10.1); EST CRCL DRUG DOSING (CG) 54.44 mL/min; POTASSIUM,K 3.7 mEq/L (3.5-5.1)
[2023-07-08 00:50] LABS: PROTHROMBIN TIME 10.7 SECONDS (9.7-12.0)
[2023-07-08 01:44] VITALS: BP 132/85; PULSE 85
== END 2023-07-08 01:42 | disposition home or self-care (01) ==
LOC: JD.ED 22:42
DX: R42 Dizziness and giddiness (principal); R94.31 Abnormal electrocardiogram [ECG] [EKG]; K21.9 Gastro-esophageal reflux disease without esophagitis; I10 Essential (primary) hypertension; Z79.899 Other long term (current) drug therapy; Z86.16 Personal history of COVID-19
CPT/HCPCS: 36415; 71045; 71045-26; 80053; 84484; 85025; 85610; 93005; 93010; 99284